=== PATIENT | female | born 1945 | race Caucasian/White ===

== ENCOUNTER 2017-10-12 19:40 | Emergency (ER) | payer MEDICARE, OTHER ==
[~2017-10-12] VITALS: Ht 167.6 cm; Wt 80.7 kg
[2017-10-12] MEDS ORDERED: CARV25 PO (19:58)
[2017-10-12] MEDS ORDERED: LEVSOD150 PO (19:58)
[2017-10-12] MEDS ORDERED: LOSARTAN POTAS100 MG PO (19:59)
[2017-10-12] MEDS ORDERED: ASPI325 PO (19:59)
[2017-10-12 20:41] LABS: BASOPHILS ABSOLUTE AUTO 0.03 K/mm3 (0.00-0.23); BASOPHILS PERCENT AUTO 0 % (0-2); EOSINOPHILS ABSOLUTE AUTO 0.09 K/mm3 (0.00-0.68); EOSINOPHILS PERCENT AUTO 1 % (0-6); Hemoglobin 12.5 g/dL (11.5-16.0); IMMATURE GRAN ABSOLUTE AUTO 0.07 K/mm3 (0.00-0.10); IMMATURE GRAN PERCENT AUTO 1 % (0-1); LYMPHOCYTES ABSOLUTE AUTO 2.28 K/mm3 (0.84-5.20); LYMPHOCYTES PERCENT AUTO 16 % (21-46); MONOCYTES ABSOLUTE AUTO 1.56 K/mm3 (0.16-1.47); MONOCYTES PERCENT AUTO 11 % (4-13); Mean Corpuscular HGB 30.3 pg (26.0-34.0); Mean Corpuscular HGB Conc 32.1 g/dL (31.5-36.5); Mean Corpuscular Volume 94 fL (80-100); NEUTROPHILS ABSOLUTE AUTO 10.66 K/mm3 (1.96-9.15); NEUTROPHILS PERCENT AUTO 73 % (41-73); RDW Standard Deviation 42.4 fL (35.1-46.3); Red Blood Cell Count 4.13 M/mm3 (3.80-5.20); White Blood Cell Count 14.69 K/mm3 (4.00-11.30)
[2017-10-12 20:44] LABS: Mean Platelet Volume 9.4 fL (9.1-12.4); Platelet Count 271 K/mm3 (150-400)
[2017-10-12 20:57] LABS: Alanine Aminotransfer (ALT/SGP 16 U/L (12-78); Albumin, Blood 3.3 g/dL (3.4-5.0); Albumin/Globulin Ratio 0.7 (0.8-1.8); Alk Phos 73 U/L (50-136); Anion Gap 9 mmol/L (6-16); Aspartate Aminotrans (AST/SGOT 21 U/L (12-37); Bilirubin, Total 0.5 mg/dL (0.1-1.0); Blood Urea Nitrogen 19 mg/dL (8-24); Bun/Creatinine Ratio 22.9 (12.0-20.0); CO2, Blood 23 mmol/L (21-32); Calcium, Blood 8.6 mg/dL (8.5-10.1); Chloride, Blood 105 mmol/L (98-108); Creatinine, Blood 0.83 mg/dL (0.40-1.00); Globulin, Blood 4.5 g/dL (2.2-4.0); Glomerular Filtration Rate >60 (60-); Glucose, Blood 115 mg/dL (70-99); Potassium, Blood 4.5 mmol/L (3.5-5.5); Sodium, Blood 137 mmol/L (136-145); Total Protein, Blood 7.8 g/dL (6.4-8.2)
[2017-10-12] MEDS ORDERED: MINO100 PO (21:24)
[2017-10-13] MEDS ORDERED: HYDR1TAB94 PO (22:15)
== END 2017-10-12 23:03 | disposition home or self-care (01) ==
LOC: ER 19:40
PROVIDERS: Emergency Medicine
DX: M25.522 Pain in left elbow (principal); L53.9 Erythematous condition, unspecified; I10 Essential (primary) hypertension; E03.9 Hypothyroidism, unspecified; M25.422 Effusion, left elbow; Z79.82 Long term (current) use of aspirin; Z79.899 Other long term (current) drug therapy
CPT/HCPCS: 36415; 73070; 76882; 80053; 85025; 96365; 99284; J3370

== ENCOUNTER 2017-10-13 20:03 | Emergency (ER) | payer MEDICARE, OTHER ==
[~2017-10-13] VITALS: Ht 167.6 cm; Wt 80.7 kg
[~2017-10-13 20:03] MED LIST: ASPI325 PO; CARV25 PO; LEVSOD150 PO; LOSARTAN POTAS100 MG PO; MINO100 PO
[2017-10-13] MEDS ORDERED: HYDR1TAB94 PO (22:15)
== END 2017-10-13 22:31 | disposition home or self-care (01) ==
LOC: ER 20:03
PROVIDERS: Emergency Medicine
DX: L03.114 Cellulitis of left upper limb (principal); I10 Essential (primary) hypertension; E03.9 Hypothyroidism, unspecified; Z79.899 Other long term (current) drug therapy; Z79.82 Long term (current) use of aspirin
CPT/HCPCS: 76882; 80202; 96365; 99284; J3370

== ENCOUNTER 2017-10-14 08:21 | Day surgery (SDC) | payer MEDICARE, OTHER ==
[~2017-10-14 08:21] MED LIST changes: +HYDR1TAB94 PO
== END 2017-10-14 22:46 | disposition home or self-care (01) ==
LOC: ATC 08:21
DX: M25.522 Pain in left elbow (principal); M25.422 Effusion, left elbow; I10 Essential (primary) hypertension; E03.9 Hypothyroidism, unspecified
CPT/HCPCS: J3370

== ENCOUNTER 2017-10-14 09:11 | Emergency (ER) | payer MEDICARE, OTHER ==
[~2017-10-14] VITALS: Ht 167.6 cm; Wt 80.7 kg
== END 2017-10-14 12:38 | disposition home or self-care (01) ==
LOC: ER 09:11
DX: L03.114 Cellulitis of left upper limb (principal); I10 Essential (primary) hypertension; E03.9 Hypothyroidism, unspecified; Z79.899 Other long term (current) drug therapy; Z79.82 Long term (current) use of aspirin
CPT/HCPCS: 96365; 99282; J3370

== ENCOUNTER 2017-10-14 19:55 | Emergency (ER) | payer MEDICARE, OTHER ==
[~2017-10-14] VITALS: Ht 167.6 cm; Wt 80.7 kg
[2017-10-14 22:25] LABS: Calcium, Ionized (POC) 1.12 mmol/L (1.10-1.46); Chloride (POC) 101 mmol/L (98-108); Creatinine (POC) 0.8 mg/dL (0.6-1.0); Glucose (ISTAT POC) 111 mg/dL (70-99); Hemoglobin (POC) 10.5 g/dL (12.0-16.0); Sodium (POC) 133 mmol/L (135-148); Total CO2 (POC) 24 mmol/L (21-32)
== END 2017-10-14 23:40 | disposition home or self-care (01) ==
LOC: ER 19:55
PROVIDERS: Emergency Medicine
DX: L03.114 Cellulitis of left upper limb (principal); L02.414 Cutaneous abscess of left upper limb; I10 Essential (primary) hypertension; E03.9 Hypothyroidism, unspecified; Z79.899 Other long term (current) drug therapy; Z79.82 Long term (current) use of aspirin
CPT/HCPCS: 36415; 73201; 80047; 85014; 96365; 96375; 99284; J1885; J3370; Q9967

== ENCOUNTER 2017-10-15 06:18 | Inpatient (IN) | payer MEDICARE, OTHER ==
[~2017-10-15] VITALS: Ht 167.6 cm; Wt 80.7 kg
[2017-10-15 07:50] LABS: BASOPHILS ABSOLUTE AUTO 0.02 K/mm3 (0.00-0.23); BASOPHILS PERCENT AUTO 0 % (0-2); EOSINOPHILS ABSOLUTE AUTO 0.08 K/mm3 (0.00-0.68); EOSINOPHILS PERCENT AUTO 1 % (0-6); Hematocrit 30.8 % (33.0-51.0); IMMATURE GRAN ABSOLUTE AUTO 0.08 K/mm3 (0.00-0.10); IMMATURE GRAN PERCENT AUTO 1 % (0-1); LYMPHOCYTES ABSOLUTE AUTO 1.44 K/mm3 (0.84-5.20); LYMPHOCYTES PERCENT AUTO 11 % (21-46); MONOCYTES PERCENT AUTO 12 % (4-13); Mean Corpuscular HGB 30.6 pg (26.0-34.0); Mean Corpuscular HGB Conc 32.5 g/dL (31.5-36.5); Mean Corpuscular Volume 94 fL (80-100); NEUTROPHILS ABSOLUTE AUTO 10.27 K/mm3 (1.96-9.15); NEUTROPHILS PERCENT AUTO 76 % (41-73); RDW Coefficient Variation 11.9 % (11.7-14.2); RDW Standard Deviation 41.1 fL (35.1-46.3); Red Blood Cell Count 3.27 M/mm3 (3.80-5.20); White Blood Cell Count 13.49 K/mm3 (4.00-11.30)
[2017-10-15 07:53] LABS: Mean Platelet Volume 9.2 fL (9.1-12.4); Platelet Count 304 K/mm3 (150-400)
[2017-10-15 07:54] LABS: Alanine Aminotransfer (ALT/SGP 13 U/L (12-78); Albumin, Blood 2.9 g/dL (3.4-5.0); Albumin/Globulin Ratio 0.7 (0.8-1.8); Alk Phos 66 U/L (50-136); Anion Gap 9 mmol/L (6-16); Aspartate Aminotrans (AST/SGOT 10 U/L (12-37); Bilirubin, Total 0.6 mg/dL (0.1-1.0); Blood Urea Nitrogen 25 mg/dL (8-24); Bun/Creatinine Ratio 26.7 (12.0-20.0); CO2, Blood 24 mmol/L (21-32); Calcium, Blood 8.4 mg/dL (8.5-10.1); Chloride, Blood 104 mmol/L (98-108); Creatinine, Blood 0.94 mg/dL (0.40-1.00); Globulin, Blood 4.3 g/dL (2.2-4.0); Glomerular Filtration Rate >60 (60-); Glucose, Blood 112 mg/dL (70-99); Potassium, Blood 4.3 mmol/L (3.5-5.5); Sodium, Blood 137 mmol/L (136-145); Total Protein, Blood 7.2 g/dL (6.4-8.2)
[2017-10-16 04:27] LABS: BASOPHILS ABSOLUTE AUTO 0.03 K/mm3 (0.00-0.23); BASOPHILS PERCENT AUTO 0 % (0-2); EOSINOPHILS ABSOLUTE AUTO 0.05 K/mm3 (0.00-0.68); EOSINOPHILS PERCENT AUTO 0 % (0-6); Hematocrit 28.7 % (33.0-51.0); Hemoglobin 9.1 g/dL (11.5-16.0); IMMATURE GRAN ABSOLUTE AUTO 0.11 K/mm3 (0.00-0.10); IMMATURE GRAN PERCENT AUTO 1 % (0-1); LYMPHOCYTES ABSOLUTE AUTO 0.77 K/mm3 (0.84-5.20); LYMPHOCYTES PERCENT AUTO 7 % (21-46); MONOCYTES ABSOLUTE AUTO 1.05 K/mm3 (0.16-1.47); MONOCYTES PERCENT AUTO 9 % (4-13); Mean Corpuscular HGB 29.5 pg (26.0-34.0); Mean Corpuscular HGB Conc 31.7 g/dL (31.5-36.5); Mean Corpuscular Volume 93 fL (80-100); Mean Platelet Volume 9.2 fL (9.1-12.4); NEUTROPHILS ABSOLUTE AUTO 9.64 K/mm3 (1.96-9.15); NEUTROPHILS PERCENT AUTO 83 % (41-73); Platelet Count 288 K/mm3 (150-400); RDW Coefficient Variation 11.8 % (11.7-14.2); Red Blood Cell Count 3.08 M/mm3 (3.80-5.20); White Blood Cell Count 11.65 K/mm3 (4.00-11.30)
[2017-10-16 04:45] LABS: Anion Gap 7 mmol/L (6-16); Blood Urea Nitrogen 21 mg/dL (8-24); Bun/Creatinine Ratio 28.2 (12.0-20.0); CO2, Blood 26 mmol/L (21-32); Calcium, Blood 7.8 mg/dL (8.5-10.1); Chloride, Blood 107 mmol/L (98-108); Creatinine, Blood 0.75 mg/dL (0.40-1.00); Glomerular Filtration Rate >60 (60-); Glucose, Blood 197 mg/dL (70-99); Potassium, Blood 4.5 mmol/L (3.5-5.5); Sodium, Blood 140 mmol/L (136-145)
[2017-10-17 09:29] LABS: BASOPHILS ABSOLUTE AUTO 0.03 K/mm3 (0.00-0.23); BASOPHILS PERCENT AUTO 0 % (0-2); EOSINOPHILS ABSOLUTE AUTO 0.18 K/mm3 (0.00-0.68); EOSINOPHILS PERCENT AUTO 3 % (0-6); Hematocrit 31.4 % (33.0-51.0); Hemoglobin 10.1 g/dL (11.5-16.0); IMMATURE GRAN PERCENT AUTO 1 % (0-1); LYMPHOCYTES ABSOLUTE AUTO 1.12 K/mm3 (0.84-5.20); LYMPHOCYTES PERCENT AUTO 16 % (21-46); MONOCYTES ABSOLUTE AUTO 0.83 K/mm3 (0.16-1.47); MONOCYTES PERCENT AUTO 12 % (4-13); Mean Corpuscular HGB 30.2 pg (26.0-34.0); Mean Corpuscular HGB Conc 32.2 g/dL (31.5-36.5); Mean Corpuscular Volume 94 fL (80-100); Mean Platelet Volume 8.9 fL (9.1-12.4); NEUTROPHILS ABSOLUTE AUTO 4.72 K/mm3 (1.96-9.15); NEUTROPHILS PERCENT AUTO 68 % (41-73); Platelet Count 326 K/mm3 (150-400); RDW Coefficient Variation 11.8 % (11.7-14.2); RDW Standard Deviation 41.1 fL (35.1-46.3); Red Blood Cell Count 3.34 M/mm3 (3.80-5.20); White Blood Cell Count 6.98 K/mm3 (4.00-11.30)
[2017-10-17 10:21] LABS: Anion Gap 8 mmol/L (6-16); Blood Urea Nitrogen 13 mg/dL (8-24); Bun/Creatinine Ratio 17.4 (12.0-20.0); CO2, Blood 25 mmol/L (21-32); Calcium, Blood 8.2 mg/dL (8.5-10.1); Chloride, Blood 111 mmol/L (98-108); Creatinine, Blood 0.75 mg/dL (0.40-1.00); Glomerular Filtration Rate >60 (60-); Glucose, Blood 105 mg/dL (70-99); Potassium, Blood 4.9 mmol/L (3.5-5.5); Sodium, Blood 144 mmol/L (136-145); Vancomycin, Trough 14.8 ug/mL (5.0-10.0)
[2017-10-17 10:29] LABS: Percent Saturation 32.8 % (15.0-50.0)
[2017-10-18] MEDS ORDERED: ACET325 PO (12:54)
[2017-10-18] MEDS ORDERED: BISA5EC PO (12:55)
[2017-10-18] MEDS ORDERED: ALUM-MAG HYDRO360 ML PO (12:55)
[2017-10-18] MEDS ORDERED: Senna8.6 MG PO (12:57)
[2017-10-18] MEDS ORDERED: Acidophilus La100 GM PO (12:59)
[2017-10-18] MEDS ORDERED: OMEPRAZOLE MAGN20 MG PO (13:01)
[2017-10-18] MEDS ORDERED: Metamucil Smooth1 EA PO (13:02)
[2017-10-18] MEDS ORDERED: VANCO 1 GR1 GM/150 M IV (13:04)
== END 2017-10-18 16:15 | disposition home or self-care (01) | DRG 465 ==
LOC: ER 06:18 → SURS 06:19 → ERHOLD 06:19 → SURS 13:00
PROVIDERS: Emergency Medicine; Internal Medicine; Orthopaedic Surgery
PROC: 0MD40ZZ Extraction of Left Elbow Bursa and Ligament, Open Approach (ICD-10-PCS; principal; 2017-10-15 18:45)
PROC: 0JBH0ZZ Excision of Left Lower Arm Subcutaneous Tissue and Fascia, Open Approach (ICD-10-PCS; 2017-10-17)
PROC: 0JDH0ZZ Extraction of Left Lower Arm Subcutaneous Tissue and Fascia, Open Approach (ICD-10-PCS; 2017-10-17)
DX: M71.022 Abscess of bursa, left elbow (principal); M79.89 Other specified soft tissue disorders; B95.62 Methicillin resistant Staphylococcus aureus infection as the cause of diseases classified elsewhere; R07.9 Chest pain, unspecified; I10 Essential (primary) hypertension; E03.9 Hypothyroidism, unspecified; K59.00 Constipation, unspecified; Z79.82 Long term (current) use of aspirin; Z79.891 Long term (current) use of opiate analgesic; Z79.899 Other long term (current) drug therapy
CPT/HCPCS: 36415; 73201; 76882; 80047; 80048; 80053; 80202; 82565; 82728; 83540; 83550; 83605; 83735; 84484; 85014; 85025; 85651; 86140; 87070; 87077; 87147; 87186; 87205; 93005; 93010; 94762; 96361; 96365; 96375; 96376; 97110; 97165; 99282; 99284; 99285; G0378; G8987; G8988; G8989; J0690; J1100; J1885; J2250; J2405; J3010; J3370; J3420; J7030; J7120; Q0163; Q9967

== ENCOUNTER 2017-10-19 07:15 | Day surgery (SDC) | payer MEDICARE, OTHER ==
[~2017-10-19 07:15] MED LIST changes: +ACET325 PO; +ALUM-MAG HYDRO360 ML PO; +Acidophilus La100 GM PO; +BISA5EC PO; +Metamucil Smooth1 EA PO; +OMEPRAZOLE MAGN20 MG PO; +Senna8.6 MG PO; +VANCO 1 GR1 GM/150 M IV
== END 2017-10-19 17:45 | disposition home or self-care (01) ==
LOC: ATC 07:15
DX: M70.22 Olecranon bursitis, left elbow (principal); M00.022 Staphylococcal arthritis, left elbow; B95.62 Methicillin resistant Staphylococcus aureus infection as the cause of diseases classified elsewhere; I10 Essential (primary) hypertension; E03.9 Hypothyroidism, unspecified
CPT/HCPCS: 96365; J3370

== ENCOUNTER 2017-10-20 07:07 | Day surgery (SDC) | payer MEDICARE, OTHER ==
[2017-10-20 08:04] LABS: Creatinine, Blood 0.73 mg/dL (0.40-1.00); Vancomycin, Trough 15.4 ug/mL (5.0-10.0)
== END 2017-10-20 17:38 | disposition home or self-care (01) ==
LOC: ATC 07:07
PROVIDERS: Internal Medicine
DX: M70.22 Olecranon bursitis, left elbow (principal); M00.022 Staphylococcal arthritis, left elbow; B95.62 Methicillin resistant Staphylococcus aureus infection as the cause of diseases classified elsewhere; I10 Essential (primary) hypertension; E03.9 Hypothyroidism, unspecified
CPT/HCPCS: 80202; 82565; 96365; J3370

== ENCOUNTER 2017-10-23 00:08 | Day surgery (SDC) | payer MEDICARE, OTHER ==
[2017-10-24] MEDS ORDERED: VANCO 1.51.5 GM/250 IV (08:22)
== END 2017-10-23 10:00 | disposition home or self-care (01) ==
LOC: ATC 00:08
DX: M70.22 Olecranon bursitis, left elbow (principal); M00.022 Staphylococcal arthritis, left elbow; B95.62 Methicillin resistant Staphylococcus aureus infection as the cause of diseases classified elsewhere
CPT/HCPCS: 96365; 99211; J3370; J7050

== ENCOUNTER 2017-10-24 07:35 | Day surgery (SDC) | payer MEDICARE, OTHER ==
[2017-10-24] MEDS ORDERED: VANCO 1.51.5 GM/250 IV (08:22)
== END 2017-10-24 09:37 | disposition home or self-care (01) ==
LOC: ATC 07:35
DX: M70.22 Olecranon bursitis, left elbow (principal); M00.022 Staphylococcal arthritis, left elbow; B95.62 Methicillin resistant Staphylococcus aureus infection as the cause of diseases classified elsewhere
CPT/HCPCS: 96365; J3370; J7050

== ENCOUNTER 2017-10-25 08:05 | Day surgery (SDC) | payer MEDICARE, OTHER ==
[~2017-10-25 08:05] MED LIST changes: +VANCO 1.51.5 GM/250 IV
== END 2017-10-25 10:32 | disposition home or self-care (01) ==
LOC: WOUND 08:05
DX: Z48.00 Encounter for change or removal of nonsurgical wound dressing (principal); M70.22 Olecranon bursitis, left elbow; M00.022 Staphylococcal arthritis, left elbow; B95.62 Methicillin resistant Staphylococcus aureus infection as the cause of diseases classified elsewhere; S51.002A Unspecified open wound of left elbow, initial encounter; I10 Essential (primary) hypertension
CPT/HCPCS: G0463

== ENCOUNTER 2017-10-26 00:23 | Day surgery (SDC) | payer MEDICARE, OTHER | END 2017-10-26 09:25 | disposition home or self-care (01) | LOC: ATC 00:23 | DX: M71.022 Abscess of bursa, left elbow (principal); I10 Essential (primary) hypertension; E03.9 Hypothyroidism, unspecified ==

== ENCOUNTER 2017-10-28 00:49 | Day surgery (SDC) | payer MEDICARE, OTHER ==
[2017-10-28 08:34] LABS: Vancomycin, Trough 11.9 ug/mL (5.0-10.0)
== END 2017-10-28 10:32 | disposition home or self-care (01) ==
LOC: ATC 00:49
PROVIDERS: Internal Medicine
DX: L02.414 Cutaneous abscess of left upper limb (principal); B95.62 Methicillin resistant Staphylococcus aureus infection as the cause of diseases classified elsewhere; M70.22 Olecranon bursitis, left elbow; S51.002A Unspecified open wound of left elbow, initial encounter; I10 Essential (primary) hypertension; E03.9 Hypothyroidism, unspecified; Z79.82 Long term (current) use of aspirin; Z79.899 Other long term (current) drug therapy
CPT/HCPCS: 80202; 82565; J3370; J7050

== ENCOUNTER 2017-10-30 00:44 | Day surgery (SDC) | payer MEDICARE, OTHER | END 2017-10-30 09:16 | disposition home or self-care (01) | LOC: ATC 00:44 | DX: M71.022 Abscess of bursa, left elbow (principal); I10 Essential (primary) hypertension; E03.9 Hypothyroidism, unspecified; Z79.82 Long term (current) use of aspirin; Z79.899 Other long term (current) drug therapy | CPT/HCPCS: 96365; 99211; J3370; J7050 ==

== ENCOUNTER 2017-11-01 08:45 | Day surgery (SDC) | payer MEDICARE, OTHER | END 2017-11-01 10:24 | disposition home or self-care (01) | LOC: WOUND 08:45 | DX: M71.122 Other infective bursitis, left elbow (principal); I10 Essential (primary) hypertension | CPT/HCPCS: G0463 ==

== ENCOUNTER 2017-11-04 00:30 | Day surgery (SDC) | payer MEDICARE, OTHER | END 2017-11-04 09:38 | disposition home or self-care (01) | LOC: ATC 00:30 | DX: M71.022 Abscess of bursa, left elbow (principal); B95.62 Methicillin resistant Staphylococcus aureus infection as the cause of diseases classified elsewhere; I10 Essential (primary) hypertension; G47.30 Sleep apnea, unspecified; E78.5 Hyperlipidemia, unspecified; E03.9 Hypothyroidism, unspecified | CPT/HCPCS: 99211; J3370; J7050 ==

== ENCOUNTER 2020-05-10 10:37 | Inpatient (IN) | payer MEDICARE, OTHER ==
[~2020-05-10] VITALS: Ht 165.1 cm; Wt 79.4 kg
[~2020-05-10 10:37] MED LIST changes: -ASPI325 PO; +ASPI325EC PO
[2020-05-10] MEDS ORDERED: [UNRECOGNIZED DRUG - OTHER] SC (10:49)
[2020-05-10] MEDS ORDERED: B12 SC (10:49)
[2020-05-10 11:20] LABS: BASOPHILS ABSOLUTE AUTO 0.04 K/mm3 (0.00-0.23); BASOPHILS PERCENT AUTO 0 % (0-2); EOSINOPHILS ABSOLUTE AUTO 0.16 K/mm3 (0.00-0.68); EOSINOPHILS PERCENT AUTO 2 % (0-6); Hematocrit 40.9 % (33.0-51.0); Hemoglobin 13.3 g/dL (11.5-16.0); IMMATURE GRAN ABSOLUTE AUTO 0.07 K/mm3 (0.00-0.10); IMMATURE GRAN PERCENT AUTO 1 % (0-1); LYMPHOCYTES ABSOLUTE AUTO 1.35 K/mm3 (0.84-5.20); LYMPHOCYTES PERCENT AUTO 14 % (21-46); MONOCYTES ABSOLUTE AUTO 0.78 K/mm3 (0.16-1.47); MONOCYTES PERCENT AUTO 8 % (4-13); Mean Corpuscular HGB 30.5 pg (26.0-34.0); Mean Corpuscular HGB Conc 32.5 g/dL (31.5-36.5); Mean Corpuscular Volume 94 fL (80-100); Mean Platelet Volume 9.4 fL (9.1-12.4); NEUTROPHILS ABSOLUTE AUTO 7.27 K/mm3 (1.96-9.15); NEUTROPHILS PERCENT AUTO 75 % (41-73); Platelet Count 250 K/mm3 (150-400); RDW Coefficient Variation 12.6 % (11.7-14.2); RDW Standard Deviation 43.5 fL (35.1-46.3); Red Blood Cell Count 4.36 M/mm3 (3.80-5.20); White Blood Cell Count 9.67 K/mm3 (4.00-11.30)
[2020-05-10 11:39] LABS: Alanine Aminotransfer (ALT/SGP 22 U/L (12-78); Albumin, Blood 3.4 g/dL (3.4-5.0); Albumin/Globulin Ratio 0.9 (0.8-1.8); Alk Phos 85 U/L (50-136); Anion Gap 6 mmol/L (6-16); Aspartate Aminotrans (AST/SGOT 16 U/L (12-37); Bilirubin, Total 0.3 mg/dL (0.1-1.0); Blood Urea Nitrogen 22 mg/dL (8-24); Bun/Creatinine Ratio 33.2 (12.0-20.0); CO2, Blood 25 mmol/L (21-32); Calcium, Blood 8.6 mg/dL (8.5-10.1); Chloride, Blood 112 mmol/L (98-108); Creatinine, Blood 0.66 mg/dL (0.40-1.00); Globulin, Blood 3.8 g/dL (2.2-4.0); Glomerular Filtration Rate >60 (60-); Glucose, Blood 100 mg/dL (70-99); Potassium, Blood 4.2 mmol/L (3.5-5.5); Sodium, Blood 143 mmol/L (136-145); Total Protein, Blood 7.2 g/dL (6.4-8.2)
[2020-05-10] MEDS ORDERED: CARVEDILOL12.5 MG PO (13:11)
[2020-05-10 16:55] LABS: Influenza A, PCR Negative (NEGATIVE); Influenza B, PCR Negative (NEGATIVE); Resp Syncytial Virus, PCR Negative (NEGATIVE); SARS-Cov-2 (COVID-19) PCR, MMC Negative (NEGATIVE)
--- NOTE | 2020-05-10 18:42 | NUR ---
SUMMARY PT RESTING IN BED, PAINFUL WHEN MOVED, RATES PAIN AT 3/10 AT THIS TIME, ASSISTED TO BEDPAN, PT ABLE TO LIFT HERSELF ON TO BEDPAN, REFUSES TO TURN OVER IN BED, DENIES ANY NUMBNESS OR TINGLING, DR. SMITH IN THE EVENING TO SEE PT, PLAN FOR OR TOMORROW, NO ACUTE CHANGES THIS SHIFT.
--- NOTE | 2020-05-11 00:07 | NUR ---
REPORT GIVEN TO RADHA SCHUMACHER.
--- NOTE | 2020-05-11 01:45 | NUR ---
TOOK OVER PATIENT CARE AT 0000 TODAY 05/11/2020.
--- NOTE | 2020-05-11 03:00 | NUR ---
SHIFT SUMMARY: RIGHT HIP FRACTURE PATIENT IS ALERT AND ORIENTED X4 WHILE AWAKE. PATIENT HAS BEEN ASLEEP MAJORITY OF THE SHIFT BUT WAS EASILY AROUSABLE. VITALS ARE WNL AND IS ON RA. PAIN IS CONTROLLED WITH 1 PERCOCET PO. SHE IS ABLE TO USE THE BEDPAN WHEN NEEDING TO VOID. SHE DENIES ANY NUMBNESS AND TINGLING. SHE CALLS APPROPRIATELY. HAVE BEEN REPOSITIONING HER RIGHT LEG THROUGHOUT THE NIGHT TO HER COMFORT. CALL LIGHT IS WITHIN REACH. THE PLAN IS FOR SURGERY THIS AFTERNOON.
--- NOTE | 2020-05-11 08:06 | NUR ---
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
--- NOTE | 2020-05-11 14:00 | NUR ---
Xin Paws warming gown applied.Lungs clear T/O to Auscultation. Patient confirms NPO status and agrees with scheduled surgery. History, Chart, Medications and Allergies reviewed before start of procedure.Pre-Op teaching done. Pt verbalizes understanding. THE PATIENT WAS BROUGHT TO D/S FOR HER PROCEDURE.
--- NOTE | 2020-05-12 03:09 | NUR ---
SHIFT SUMMARY: POD 1 RIGHT HIP PINNING PATIENT WHILE AWAKE IS ALERT AND ORIENTED X3. SHE IS FORGETFUL AT TIMES. BED ALARM IS ON. SHE HAS BEEN SLEEPING MAJORITY OF THE SHIFT BUT IS EASILY AROUSABLE. BOTH LEGS ARE ELEVATED ON PILLOWS. PATIENT HAS NOT WANTED PAIN MEDICATION DURING SHIFT. THOUGH SHE DOES HAVE PAIN MEDICATIONS PRN PER EMAR ORDERS. SHE IS ABLE TO PIVOT TO THE BEDSIDE COMMODE AND BACK TO BED WITH FWW AND GAIT BELT. SHE IS A SBA. SHE CALLS APPROPRIATELY. CALL LIGHT WITHIN REACH. PILLOWS HAVE BEEN ROTATED UNDER HER HIPS TO HELP HER BACK NOT HURT SO MUCH. SHE REPORTS IT "HELPING A LOT". THE PLAN IS TO CONTINUE TO WORK WITH PT/OT, IV ABX, AND ENCOURAGING PO FLUIDS.
[2020-05-12 04:15] LABS: BASOPHILS ABSOLUTE AUTO 0.01 K/mm3 (0.00-0.23); BASOPHILS PERCENT AUTO 0 % (0-2); EOSINOPHILS PERCENT AUTO 0 % (0-6); Hematocrit 31.9 % (33.0-51.0); Hemoglobin 10.1 g/dL (11.5-16.0); IMMATURE GRAN ABSOLUTE AUTO 0.04 K/mm3 (0.00-0.10); IMMATURE GRAN PERCENT AUTO 0 % (0-1); LYMPHOCYTES ABSOLUTE AUTO 0.73 K/mm3 (0.84-5.20); LYMPHOCYTES PERCENT AUTO 6 % (21-46); MONOCYTES ABSOLUTE AUTO 0.69 K/mm3 (0.16-1.47); MONOCYTES PERCENT AUTO 5 % (4-13); Mean Corpuscular HGB 30.2 pg (26.0-34.0); Mean Corpuscular HGB Conc 31.7 g/dL (31.5-36.5); Mean Corpuscular Volume 96 fL (80-100); Mean Platelet Volume 9.6 fL (9.1-12.4); NEUTROPHILS ABSOLUTE AUTO 11.65 K/mm3 (1.96-9.15); NEUTROPHILS PERCENT AUTO 89 % (41-73); Platelet Count 178 K/mm3 (150-400); RDW Coefficient Variation 12.5 % (11.7-14.2); RDW Standard Deviation 43.3 fL (35.1-46.3); Red Blood Cell Count 3.34 M/mm3 (3.80-5.20); White Blood Cell Count 13.12 K/mm3 (4.00-11.30)
[2020-05-12 04:36] LABS: Anion Gap 7 mmol/L (6-16); Blood Urea Nitrogen 21 mg/dL (8-24); Bun/Creatinine Ratio 29.6 (12.0-20.0); CO2, Blood 23 mmol/L (21-32); Calcium, Blood 8.2 mg/dL (8.5-10.1); Chloride, Blood 110 mmol/L (98-108); Creatinine, Blood 0.71 mg/dL (0.40-1.00); Glomerular Filtration Rate >60 (60-); Glucose, Blood 214 mg/dL (70-99); Potassium, Blood 4.5 mmol/L (3.5-5.5); Sodium, Blood 140 mmol/L (136-145)
--- NOTE | 2020-05-12 16:28 | NUR ---
SHIFT SUMMARY POD 1 R HIP REPAIR [id number]. PT HAS WORKED WITH THERAPY TODAY. UP IN CHAIR FOR MOST OF SHIFT. PT HAS REPORTED MINIMAL PAIN AND NO NAUSEA. PT HAS GOOD APPETITE AND IS VOIDING WELL. DRESSING CDI. PLAN IS FOR DC TO SNF AT SOME POINT, CARE MANAGEMENT WORKING WITH PT AND FAMILY TO ORGANIZE DISCHARGE.
--- NOTE | 2020-05-13 06:11 | NUR ---
SHIFT SUMMARY POD#2. AAOX4. DISCOMFORT CONTROLLED WITH 1 PAIN PILL X2 THIS SHIFT. NO NAUSEA/EMESIS. DRESSING TO RIGHT HIP C/D/I. PT FROM CHAIR TO BED, UP TO BSC MODERATE 1 PERSON ASSIST WITH FWW. PT RESTED WELL T/O NIGHT. NO ACUTE CHANGES OVER NIGHT. AWAITING TRANSFER TO SNF. PT CURRENTLY RESTING IN BED WITH CALL LIGHT IN REACH.
--- NOTE | 2020-05-13 07:35 | NUR ---
pt oob to recliner after voiding in bsc
[2020-05-13 11:51] LABS: Influenza A, PCR NEGATIVE (NEGATIVE); Influenza B, PCR NEGATIVE (NEGATIVE); Resp Syncytial Virus, PCR NEGATIVE (NEGATIVE); SARS-Cov-2 (COVID-19) PCR, MMC NEGATIVE (NEGATIVE)
--- NOTE | 2020-05-13 14:39 | NUR ---
ASSUMED CARE OF PT, RECVD REPORT FROM PREVIOUS RN CURTIS, PT SLEEPING IN BED, CALL LIGHT WITHIN REACH, BED IN LOWEST POSITION, BED RAILS UP X 2
--- NOTE | 2020-05-13 15:16 | NUR ---
nurse caregiver services home and pt's son in room with pt, bed rails up x 2, bed in lowest position, call light within reach
--- NOTE | 2020-05-13 15:57 | NUR ---
provided report to RADHA Wright at [facility]. Pt's belongings packed; pt up chair awaiting transport
== END 2020-05-13 16:18 | disposition home or self-care (01) | DRG 482 ==
LOC: ER 10:37 → SURS 13:55
PROVIDERS: Emergency Medicine; Nurse Practitioner Acute Care; Orthopaedic Surgery; ADMIT Internal Medicine
PROC: 0QS634Z Reposition Right Upper Femur with Internal Fixation Device, Percutaneous Approach (ICD-10-PCS; principal; 2020-05-11 14:30)
DX: S72.141A Displaced intertrochanteric fracture of right femur, initial encounter for closed fracture (principal); E03.9 Hypothyroidism, unspecified; I10 Essential (primary) hypertension; W18.30XA Fall on same level, unspecified, initial encounter; Z20.822 Contact with and (suspected) exposure to COVID-19; R07.89 Other chest pain
CPT/HCPCS: 0241U; 36415; 71045; 73502; 80048; 80053; 82550; 83735; 85025; 93005; 93010; 96374; 96375; 97110; 97116; 97162; 97165; 97530; 97535; 99285-25; A9270; C1713; C1769; J0690; J1100; J1170; J1650; J2060; J2250; J2370; J2405; J2704; J3010; J3370; J7030; J7120